=== PATIENT | male | born 1955 | race Caucasian/White ===

== ENCOUNTER 2018-05-13 17:08 | Inpatient (IN) | payer MEDICARE, SELFPAY ==
[2018-05-13 17:15] VITALS: BMI 27.5
--- NOTE | 2018-05-13 20:13 | PM.HP.1 ---
History of Present Illness Date Patient Seen: 05/13/18 Time Patient Seen: 20:10 Chief complaint: COPD Narrative: 63-year-old man with COPD under the primary care of the residents Clinic presented with cough, wheezing and shortness of breath over the past few days to the emergency department at [facility]. He was treated with Solu-Medrol 125 mg, Levaquin IV and frequently administered bronchodilators but remained hypoxic, requiring 4 L of nasal cannula oxygen. Due to lack of bed space, he is admitted to this hospital for further management and evaluation. He was also noted to have a BNP of 2100. Recent echocardiography showed ejection fraction 25%. The patient states a considerable amount of stress in his life recently, causing him to miss 2 weeks of his usual medications, returning from [place] a couple of days ago. Patient History Medical History Asthma (Acute) CHF (congestive heart failure) (Acute) COPD (chronic obstructive pulmonary disease) (Acute) History of methamphetamine abuse (Acute) Hyperlipidemia (Acute) Hypertension (Acute) Family & Social History Family History: Reviewed 05/13/18 by Jero Hdez MD Family history unavailable: No Social History: Single living in [facility]. Last methamphetamine use 10/2017 Tobacco & Substance use: former smoker Review of Systems Review of Systems All systems reviewed & are unremarkable except as noted in HPI and below Exam Narrative Exam Narrative: General: Alert, pleasant, in mild respiratory distress HEENT: Pupils equal round reactive, extraocular movements intact Neck: Supple Lungs: Diminished breath sounds throughout, prolonged expiratory phase, faint wheezing on forced expiration Cardiac: Regular rate and rhythm with no appreciable murmur Abdomen: Soft, nontender Extremities: Without edema Neurologic: Alert, oriented, no focal neurologic deficits Dermatologic: No rash or skin lesions Objective Imaging Chest x-ray: Radiologist's impression: No acute disease Assessment & Plan Plan: Assessment/Plan Narrative: 1. COPD/asthma exacerbation. Consult Respiratory therapy, treat with frequently administered bronchodilators, IV steroids and empiric antibiotics. 2. Acute hypoxic respiratory failure due to 1. Presenting oxygen saturation was 88% on room air. Continue supplemental oxygen. 3. Acute on chronic systolic congestive heart failure. Advance diuresis and follow clinically. 4. Hypertension. Continue routine medication. 5. Hyperlipidemia. Continue routine medication. 6. History of methamphetamine use, reportedly in remission. Check urine tox screen. 7. DVT prophylaxis: Low-dose Lovenox. 8. Code status: Full code. 9. Disposition: Admit to inpatient status as he will require at least 2 midnights of inpatient level care for
[2018-05-13 20:20] VITALS: BP 152/94; PULSE 71; RESP 24; TEMP 36.7; O2SAT 96
[2018-05-13 20:30] VITALS: O2SAT 96
--- NOTE | 2018-05-13 20:32 | PC.NURSE ---
Admit note: Patient arrived to acute care via gurney with transport team from [facility]. Patient awake and alert, speaking in full sentences, with mild tachypnea, and diaphoretic. O2 at 4L via NC, sat 96%. Loose watery stools upon arrival with cough. Productive cough noted. Diminished lung sounds noted to right upper and lower lobes. Patient pale. Abdominal distention, tender to palpation, soft, and active BS. Erythematous localized rash to groin/scrotal area with satelite lesions. Redness to perineal area, no broken skin, or abnormal drainage. RT at bedside performing ordered EKG. Dr. Hdez at bedside. Patient oriented to room and environment, Call light within reach.
[2018-05-13] MEDS: FUROSEMIDE 40 MG/4 ML VIAL IV (21:11)
[2018-05-13 21:12] VITALS: BP 152/94; PULSE 71
[2018-05-13] MEDS: CARVEDILOL 25 MG TABLET PO (21:12)
[2018-05-13] MEDS: ATORVASTATIN 20 MG TABLET 40 MG PO (21:12)
[2018-05-13] MEDS: ACETAMINOPHEN 325 MG TABLET 650 MG PO (21:15)
[2018-05-13 21:53] VITALS: O2SAT 96
[2018-05-13 22:45] LABS: Urine Amphetamines Positive (Negative); Urine Barbiturates Negative (Negative); Urine Benzodiazepines Negative (Negative); Urine Cocaine Negative (Negative); Urine MDMA Negative (Negative); Urine Methadone Negative (Negative); Urine Methamphetamines Positive (Negative); Urine Morphine/Opi cutoff 2000 Positive (Negative); Urine Oxycodone Negative (Negative); Urine Phencyclidine Negative (Negative); Urine Tetrahydrocannabinol Positive (Negative); Urine Tricyclic Antidepressant Negative (Negative)
[2018-05-13 23:00] VITALS: O2SAT 95
[2018-05-13 23:25] VITALS: BP 126/76; PULSE 62; RESP 16; TEMP 36; O2SAT 92
[2018-05-14] VITALS (18 sets, daily range): BP systolic 105–135; BP diastolic 69–88; PULSE 55–68; RESP 14–26; TEMP 35.6–36.3; O2SAT 86–96
[2018-05-14] MEDS: TRAMADOL 50 MG TABLET PO (00:12)
[2018-05-14] MEDS: methylPREDNISolone 125 MG/2 ML VIAL 80 MG IV ×4 (00:49→18:46)
[2018-05-14] MEDS: ALBUTEROL 2.5 MG/3 ML NEB (ADULT) INH ×2 (01:28→10:04)
--- NOTE | 2018-05-14 01:32 | PC.NURSE ---
NOC Shift Pt is A/o x3, reporting SOB with activity, increased productive cough. Green to yellow noted on tissue. Increased pain with cough. Tramadol given, Call into Dr Hdez for Goyo Escobar, per Pt request. Albuterol started by RT per home routine. Spo2 95% 4L. Dim t/o, wheezing noted on expiration. Pt afebrile, diaphoretic. Using call light for needs. [id number]-Rec'd order for goyo escobar.
[2018-05-14] MEDS: BENZONATATE 100 MG CAPSULE PO (01:49)
[2018-05-14] MEDS: ACETAMINOPHEN 325 MG TABLET 650 MG PO ×6 (02:08→21:23)
[2018-05-14 05:14] LABS: Add Manual Diff / Slide Review NO; Basophils Percent Auto 0.1 % (0-2); Hematocrit 46.1 % (41-53); Hemoglobin 15.6 g/dL (13.5-17.5); Lymphocytes Percent Auto 7.3 % (25-40); Mean Corpuscular HGB Conc 33.8 % (30-36); Mean Corpuscular Hemoglobin 30.2 PG (26-34); Mean Corpuscular Volume 89.3 fL (80-100); Monocytes Percent Auto 2.8 % (3-14); Neutrophils Absolute Auto 7900 /uL (3000-5900); Neutrophils Percent Auto 89.8 % (50-75); Platelet Count 155 X10^3/uL (150-400); Red Blood Cell Count 5.17 X10^6/uL (4.5-5.9); Red Cell Distribution Width 13.9 % (11.6-14.8); White Blood Cell Count 8.8 X10^3/uL (4.5-11.0)
[2018-05-14 05:21] LABS: BUN Creatinine Ratio 22.9 (6-22); Blood Urea Nitrogen 32 mg/dL (9-20); Calcium 9.1 mg/dL (8.4-10.2); Carbon Dioxide 29 mmol/L (22-32); Chloride 98 mmol/L (98-107); Estimated Glomerular Filt Rate 51.2 mL/min (>60); Glucose 194 mg/dL (80-110); HEMOLYSIS < 15 (0-50); Potassium 4.5 mmol/L (3.4-5.1); Sodium 137 mmol/L (137-145)
[2018-05-14 05:32] LABS: Troponin I 0.036 ng/mL (0.01-0.034)
[2018-05-14 05:42] LABS: B Type Natriuretic Peptide 86.1 (<100)
--- NOTE | 2018-05-14 09:01 | P.PN_ITS ---
Subjective Date Patient Seen: 05/14/18 Time Patient Seen: 08:45 Interval history: The patient states that breathing is improved, though is unstable. He had a large bowel movement this morning. He still feels very weak. He is very depressed about the of his dog another recent stressful events in his life. Exam Vital Signs (past 8 hours): - 05/14/18 01:00 05/14/18 01:15 05/14/18 05:00 Temperature Pulse Rate 68 Respiratory Rate 26 H Blood Pressure Pulse Oximetry 95 94 05/14/18 05:40 Temperature 96.1 F L Pulse Rate 60 Respiratory Rate 16 Blood Pressure 105/74 Pulse Oximetry 93 Oxygen Delivery Method Nasal Cannula Oxygen Flow Rate 4 Narrative Exam Narrative: General: Alert, pleasant, in mild respiratory distress HEENT: Pupils equal round reactive, extraocular movements intact Neck: Supple Lungs: Diminished breath sounds throughout, prolonged expiratory phase, faint wheezing on forced expiration Cardiac: Regular rate and rhythm with no appreciable murmur Abdomen: Soft, nontender Extremities: Without edema Neurologic: Alert, oriented, no focal neurologic deficits Dermatologic: No rash or skin lesions Objective Labs Result Diagrams: 05/14/18 04:45 05/14/18 04:45 Labs: Laboratory Results - last 24 hr 05/13/18 05/14/18 05/14/18 20:20 04:45 04:45 WBC 8.8 RBC 5.17 Hgb 15.6 Hct 46.1 MCV 89.3 MCH 30.2 MCHC 33.8 RDW 13.9 Plt Count 155 Neut % (Auto) 89.8 H Lymph % (Auto) 7.3 L [place] % (Auto) 2.8 L Eos % (Auto) 0.0 L Baso % (Auto) 0.1 Neut # (Auto) 7900 H Sodium 137 Potassium 4.5 Chloride 98 Carbon Dioxide 29 BUN 32 H Creatinine 1.40 H Estimated GFR 51.2 L BUN/Creatinine Ratio 22.9 H Glucose 194 H Calcium 9.1 Troponin I 0.036 H B-Natriuretic Peptide 86.1 Urine Opiates Screen Positive H Ur Oxycodone Screen Negative Urine Methadone Screen Negative Ur Barbiturates Screen Negative U Tricyclic Antidepress Negative Ur Phencyclidine Scrn Negative Ur Amphetamines Screen Positive H U Methamphetamines Scrn Positive H Ur MDMA Scrn (Ecstasy) Negative U Benzodiazepines Scrn Negative Urine Cocaine Screen Negative U Marijuana (THC) Screen Positive H Assessment & Plan Plan: Assessment/Plan Narrative: 1. COPD/asthma exacerbation. Slowly improving. Continue Respiratory therapy, treat with frequently administered bronchodilators, IV steroids and empiric antibiotics. 2. Acute hypoxic respiratory failure due to 1. Presenting oxygen saturation was 88% on room air. Continue supplemental oxygen. 3. Acute on chronic systolic congestive heart failure. Advance diuresis and follow clinically. 4. Hypertension. Continue routine medication. 5. Hyperlipidemia. Continue routine medication. 6. History of methamphetamine use, reportedly in remission. Check urine tox screen. 7. Grief reaction. He states significant anxiety and depression over recent stressful events. He is agreeable to starting anti depressant therapy. Initiate sertraline 50 mg daily and low-dose lorazepam 0.5 mg as needed. 8. DVT prophylaxis: Low-dose Lovenox. 8. Code status: Full code. 9. Disposition: Inpatient status as he will require at least 2 midnights of inpatient level care. Consult Physical therapy given significant weakness and unsteadiness. Quality VTE Deep Vein Thrombosis/Pulmonary Embolism Present on Admission: No
[2018-05-14] MEDS: FUROSEMIDE 40 MG/4 ML VIAL IV (09:33)
[2018-05-14] MEDS: SERTRALINE 50 MG TABLET PO (09:33)
[2018-05-14] MEDS: LORazepam 0.5 MG TABLET PO (09:33)
[2018-05-14] MEDS: SPIRONOLACTONE 25 MG TABLET 12.5 MG PO (09:36)
[2018-05-14] MEDS: CARVEDILOL 25 MG TABLET PO ×2 (09:36→21:23)
[2018-05-14] MEDS: AZITHROMYCIN 250 MG TABLET 500 MG PO (09:36)
[2018-05-14] MEDS: hydroCHLOROthiazide 25 MG TABLET PO (09:36)
[2018-05-14] MEDS: ENOXAPARIN 40 MG/0.4 ML SYRINGE SUBCUT (09:36)
[2018-05-14] MEDS: ASPIRIN EC 81 MG TABLET PO (09:36)
[2018-05-14] MEDS: LOSARTAN 50 MG TABLET 100 MG PO (09:36)
[2018-05-14] MEDS: AMLODIPINE 5 MG TABLET 10 MG PO (09:36)
--- NOTE | 2018-05-14 13:01 | PC.NURSE ---
Pt complained of chest pain briefly, Dr. Hdez aware and ordered an EKG. Pts chest pain gone by this time. wrote some orders for ativan and started pt on zoloft. He also has orders for morphine if he developes chest pain again. Pt up to commode with 1 person assist and walker. He has had 2 soft stools today. He voided 225cc this morning and also had urine mixed in his stool. He has been eating well at meals and drinking fluids. He is more comfortable now.
--- NOTE | 2018-05-14 14:21 | CM.DANOTE ---
Addendum entered by Ivelisse Samson LPN 05/14/18 14:48: Pt also notes he is a [place] . He says he has not gotten around to looking into his benefits. Original Note: Discharge Planning/Care Management DCP: assessment: case received EMR reviewed, discussed findings with CM team as a social work consult had been advised by RN during the initial nursing assessment but did not show as referral to CM dept. Met then with pt, introduced self and role and explained a manager social responsibility from CM/DCP dept would be assigned to follow him for social work/dcplanning. Pt is a 63 year old male who admitted last evening to care of the hospitalist team. States he does not live in [place] any longer but has [address] there...will alert ACG to same. Cell is same: [phone]. Pt is here for treatment of COPD: Payer: Medicare and Medicaid. PCP: confirms he goes to the Residency clinic [facility]. During brief meeting with pt he seemed very eager to talk, readily admitting to ongoing use of drugs and noted relapse started when he really just wanted to celebrate seeing my 40 year old son for the first time, then his dog and various events unfolded re his property and medical issues and thus felt justified in his ongoing use. Pt expressing anger re politicians, medical establishment and says that if he could just have his double hernia surgery every thing would be better. The doctor says he won't ok it because my heart can't handle the surgery. I know that's a lie. Dr. Hdez is starting pt on medications for depression and anxiety, would seem perhaps this might be a problem in setting of ongoing drug abuse but will defer to his expertise. Will pass on case to manager social responsibility team. CM manager social responsibility Liza was alerted to same. She recommends deferring to SALES APPOINTMENT COORDINATOR on tomorrow to see pt and proceed accordingly. [facility] has set assignment for same. CM Discharge Assessment Start: 05/14/18 14:04 Freq: Status: Active Protocol: Document 05/14/18 14:05 ITV (Rec: 05/14/18 14:19 ITV [id number]) Discharge Planning Assessment History Provided By Patient Medical Record Is this patient on Medicare? Yes Comment direct admit from [facility]/on divert for no capacity Prior Living Arrangements RV Household Members none Type of transporation used prior to Drives own vehicle admit Comment currently lives at [facility] in his motor home. Expresses anger re various failed land buying situations Independent with ADL's Yes Is patient alert and oriented? Yes Comment likely return to motor home at d/c. May need referrals for chemical dependency and mental health treatment options/ will defer to CM manager social responsibility for further assessement and recommendations. Dr. Hdez is starting pt on medications for Grief Reaction. Pt readily admits to his drug use/tox screen + for opioids and amphetamine/meth amphetatmins Review Status In Process Next Review Type Continued Stay Review Document 05/14/18 14:21 ITV (Rec: 05/14/18 14:21 ITV [id number]) Discharge Planning Assessment History Provided By Patient Medical Record Is this patient on Medicare? Yes Comment direct admit from [facility]/on divert for no capacity Prior Living Arrangements RV Household Members none Type of transporation used prior to Drives own vehicle admit Comment currently lives at [facility] in his motor home. Expresses anger re various failed land buying situations Independent with ADL's Yes Is patient alert and oriented? Yes Comment likely return to motor home at d/c. May need referrals for chemical dependency and mental health treatment options/ will defer to CM manager social responsibility for further assessement and recommendations. Dr. Hdez is starting pt on medications for Grief Reaction. Pt readily admits to his drug use/tox screen + for opioids and amphetamine/meth amphetatmins Review Status In Process Next Review Type Continued Stay Review
[2018-05-14 14:40] LABS: Troponin I 0.019 ng/mL (0.01-0.034)
--- NOTE | 2018-05-14 14:42 | PT.IIE ---
Current Diagnoses Chronic obstructive pulmonary disease with (acute) exacerbation (05/13/18) Medical History (Last Updated 05/13/18 @ 20:21 by Jero Hdez MD) Asthma (Acute) CHF (congestive heart failure) (Acute) COPD (chronic obstructive pulmonary disease) (Acute) History of methamphetamine abuse (Acute) Hyperlipidemia (Acute) Hypertension (Acute) Physical Therapy Inpatient Evaluation/Re-Eval M1 PT/OT-IP Prior Functional Status Start: 05/14/18 15:44 Freq: NEEDED Status: Active Protocol: Document 05/14/18 14:42 MDD (Rec: 05/14/18 16:03 MDD [id number]) Medical Review Prior Functional Status Medical History Reviewed Yes Mobility and Gait independent with no AD Activities of Daily Living and IADL's independent with ADL's Social History Household Members none Living Arrangements RV Number of Floors (Floors) One Floor Number of Stairs To Enter/Railing? 2 steps into RV, one railing on L after first step. Home Environment Standard Height Toilet Employment Status Unemployed Additional Social History Comment Pt lives alone in RV. Multiple stressors last year with complicated family relationships. 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 No close family nearby. Water does not work for shower in RV - pt reports he currently someone working with him to find low income housing. M2 PT-IP Current Condition Start: 05/14/18 15:44 Freq: NEEDED Status: Active Protocol: Document 05/14/18 14:42 MDD (Rec: 05/14/18 16:03 MDD [id number]) Physical Therapy Current Condition Current Condition Evaluation Date 05/14/18 Treatment Diagnosis COPD, pneumonia Onset Date 05/13/18 M3 PT-IP Subjective Start: 05/14/18 15:44 Freq: NEEDED Status: Active Protocol: Document 05/14/18 14:42 MDD (Rec: 05/14/18 16:03 MDD [id number]) Subjective Physical Therapy Visit Type Type Initial Evaluation Visit Start Time 14:15 Visit Stop Time 14:42 Total Visit Minutes 37 Number of COMPUTER LAB PARA PROFESSIONAL Visits 0 Physical Therapy Visit Comments Patient Comments Pt reports feeling very weak, nauseous, fatigued and hot. Agreeable to participate with PT eval. Pt reports discomfort from scrotal edema/ herniation in sitting, prefers to stand to reposition after supine to sit. Therapy Pain Assessment Pain Present Pain Present Denied Pain M4 PT-IP Mobility and Gait Start: 05/14/18 15:44 Freq: NEEDED Status: Active Protocol: Document 05/14/18 14:42 MDD (Rec: 05/14/18 16:03 MDD [id number]) PT-Bed Mobility Assessment Supine to Sit Supine to Sit Minimal Assistance Head of Bed Elevated Sit to Supine Sit to Supine Independent Head of Bed Elevated Scooting Scooting to Edge of Bed Independent PT-Transfer Assessment Sit to and From Stand Sit to and from Stand Standby Assistance Equipment Transfer Assistive Device Gait Belt Front Wheeled Walker Orthotic/Prosthetic Devices or Brace: No Transfers Transfer Destination Bed Transfer Ability Level of Assist Standby Assistance Comments Mobility Comments Pt on 5 L oxygen at rest with O2 sats 83-84%. Gait Assessment Comments Gait Comments Did not perform gait this day due to limitations with supplemental oxygen tubing. PT-Balance Assessment Sitting Balance and Reactions Static Sitting Balance Ability Normal Dynamic Sitting Balance Ability Normal Standing Balance and Reactions Static Standing Balance Ability Normal Dynamic Standing Balance Ability Good Balance Tests Romberg 30 seconds Functional Assessments Other Functional Tests Performed Pt demonstrated ability to stand with UE support x 7 minutes on 5 L O2. O2 saturation did not drop below 91%. M5 PT-IP Objective Assessments Start: 05/14/18 15:44 Freq: NEEDED Status: Active Protocol: Document 05/14/18 14:42 MDD (Rec: 05/14/18 16:03 MDD [id number]) Orientation Orientation/Cognition Level of Alertness Alert Orientation Name Age Birthday Month Date Year Day of Week Place Situation Language Function Ability No Deficits Noted Safety Awareness Understands Safety Issues Memory Description No Deficits Noted Gross Range of Motion Lower Extremity ROM Assessment Within Functional Limits Strength Lower Extremity Strength Assessment Within Functional Limits M6 PT-IP Treatment Start: 05/14/18 15:44 Freq: NEEDED Status: Active Protocol: Document 05/14/18 14:42 MDD (Rec: 05/14/18 16:03 MDD [id number]) Physical Therapy Treatment Education Education Provided Safety M7 PT-IP Assessment and Plan Start: 05/14/18 15:44 Freq: NEEDED Status: Active Protocol: Document 05/14/18 14:42 MDD (Rec: 05/14/18 16:03 MDD [id number]) PT Summary Assessment and Plan Potential Rehabilitation Potential Good Status of Condition at Evaluation Stable Summary Impairments Bed Mobility Transfers Gait Activity Tolerance Progress Towards Goals Slow Progress due to Medical Issues Assessment Summary Pt very fatigued, but demonstrated min A for supine to sit with HOB elevated. Did not perform gait today due to restraints with oxygen tubing . Pt expected to continue to improve with mobility as medical condition improves. Will benefit from inpatient PT to improve activity tolerance and gait for return to PLOF prior to d/c. Goals Bed Mobility Goal Independent Transfer Goal Independent Gait Goal Independent Gait Distance 50 feet on level ground with no AD Other Goals Able to ascend/descend 2 steps with one handrail on left to enter RV Days to Meet Goals 3 Frequency of Treatment Frequency Of Treatment Twice a Day Treatment Plan Physical Therapy Treatment Plan Bed Mobility Training Transfer Training Gait Training Therapeutic Exercise Discharge Planning Recommendations To Nursing Amount of Assist Needed 1 Person Assist Discharge Recommendations PT Discharge Recommendations Home Other Discharge Recommendations Home situation does not seem ideal due to lack of working water. However, pt should be able to improve to PLOF as medical condition improves.
[2018-05-14] MEDS: ALBUTEROL/IPRATROPIUM 3 ML AMPUL INH ×2 (15:55→20:03)
[2018-05-14] MEDS: ATORVASTATIN 20 MG TABLET 40 MG PO (21:23)
[2018-05-15] VITALS (12 sets, daily range): BP systolic 91–128; BP diastolic 55–78; PULSE 52–62; RESP 14–18; TEMP 36–36.3; O2SAT 90–95
[2018-05-15] MEDS: TRAMADOL 50 MG TABLET PO (00:38)
[2018-05-15] MEDS: methylPREDNISolone 125 MG/2 ML VIAL 80 MG IV ×2 (00:40→09:40)
[2018-05-15] MEDS: ALBUTEROL/IPRATROPIUM 3 ML AMPUL INH ×3 (01:05→10:59)
[2018-05-15 05:39] LABS: BUN Creatinine Ratio 42.9 (6-22); Blood Urea Nitrogen 60 mg/dL (9-20); Carbon Dioxide 28 mmol/L (22-32); Chloride 95 mmol/L (98-107); Estimated Glomerular Filt Rate 51.2 mL/min (>60); Glucose 176 mg/dL (80-110); HEMOLYSIS < 15 (0-50); Sodium 134 mmol/L (137-145)
--- NOTE | 2018-05-15 06:09 | PC.NURSE ---
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 Spoke of family/children issues/stress, support provided. Pt c/o double hernia pain 02/09, requesting Tramadol prn. Tramadol given at 0040, with good effect. Remained on continuous O2 monitoring, O2 sat 91-95% on 5L NC. During initial assessment at 0050, pt able to hold a conversation without visible becoming short of breath, states feels SOBOE and weak with OOB movement. High fall risk precautions in place.
--- NOTE | 2018-05-15 08:49 | P.DS_ITS ---
History of Present Illness Date Patient Seen: 05/15/18 Time Patient Seen: 08:10 Chief complaint: COPD Narrative: 63-year-old man with COPD under the primary care of the residents Clinic presented with cough, wheezing and shortness of breath over the past few days to the emergency department at [facility]. He was treated with Solu-Medrol 125 mg, Levaquin IV and frequently administered bronchodilators but remained hypoxic, requiring 4 L of nasal cannula oxygen. Due to lack of bed space, he is admitted to this hospital for further management and evaluation. He was also noted to have a BNP of 2100. Recent echocardiography showed ejection fraction 25%. The patient states a considerable amount of stress in his life recently, causing him to miss 2 weeks of his usual medications, returning from [place] a couple of days ago. Discharge Providers Date of admission: 05/13/18 17:08 Primary care physician: Shady Olea Consults: 05/13/18 20:55 Consult to Pastoral Services Routine Comment: recent life stressors 05/14/18 09:03 Consult to Physical Therapy Evaluate & Treat Comment: weakness Physician Instructions: Evaluate and Treat Discharge provider: Jero Hdez MD Summary Discharge Diagnosis: 1. COPD/asthma exacerbation 2. Acute hypoxic respiratory failure due to 1. 3. Acute on chronic systolic congestive heart failure 4. Above complications due to medication noncompliance 6. Depression/anxiety 7. Hypertension 8. Hyperlipidemia 9. Active methamphetamine use Hospital Course: The patient was admitted and treated with IV steroids, antibiotics and diuresis, with his usual medications resumed due to medication noncompliance over the past 2 weeks. He was significantly depressed and stressed over recent family events, including loss of it dog, and was started on sertraline. He was feeling significantly better and interested in discharge home. No other issues arose. Status at Discharge Functional status at discharge: independent ambulation Overall status at discharge: patient is progressing back to baseline Time Spent with Patient Greater than 30 minutes Exam Vital Signs (past 8 hours): - 05/15/18 00:50 05/15/18 01:05 05/15/18 03:00 Temperature 96.8 F L Pulse Rate 52 L 58 L Respiratory Rate 14 18 Blood Pressure 91/55 L Pulse Oximetry 91 92 93 05/15/18 03:08 05/15/18 04:29 05/15/18 07:15 Temperature Pulse Rate 53 L 62 Respiratory Rate 16 Blood Pressure Pulse Oximetry 92 95 94 Fraction of Inspired Oxygen 40 Oxygen Delivery Method Nasal Cannula Oxygen Flow Rate 5 Narrative Exam Narrative: General: Alert, pleasant, in mild respiratory distress HEENT: Pupils equal round reactive, extraocular movements intact Neck: Supple Lungs: Diminished breath sounds throughout, faint wheezing on forced expiration Cardiac: Regular rate and rhythm with no appreciable murmur Abdomen: Soft, nontender Extremities: Without edema Neurologic: Alert, oriented, no focal neurologic deficits Dermatologic: No rash or skin lesions Objective Labs Result Diagrams: 05/14/18 04:45 05/15/18 04:52 Labs: Laboratory Results - last 24 hr 05/14/18 05/15/18 14:10 04:52 Sodium 134 L Potassium 4.0 Chloride 95 L Carbon Dioxide 28 BUN 60 H Creatinine 1.40 H Estimated GFR 51.2 L BUN/Creatinine Ratio 42.9 H Glucose 176 H Calcium 9.0 Troponin I 0.019 Discharge Plan Discharge Plan Patient Disposition: Home, Self-Care Discharge comment: please send all Rx's to [facility] (computer won' t send, will need to print Rx for tramadol for signature) Discharge Med Rec/Prescriptions Prescriptions: New azithromycin [Zithromax Z-Eric] 250 mg Tablet 500 mg PO DAILY Qty: 3 RF: 0 benzonatate 100 mg Capsule 100 mg PO TID PRN (Reason: Cough) Qty: 14 RF: 0 sertraline [Zoloft] 50 mg Tablet 50 mg PO DAILY Qty: 30 RF: 0 prednisone 10 mg tablet 10 mg PO DAILY Qty: 20 RF: 0 Continue albuterol sulfate 1.25 mg/3 mL Solution For Nebulization 1.25 mg INHALATION QID PRN (Reason: Respiratory Distress) RF: 0 atorvastatin 40 mg Tablet 40 mg PO DAILY Qty: 30 RF: 0 carvedilol 25 mg Tablet 25 mg PO BID Qty: 60 RF: 0 aspirin 81 mg Tablet,Delayed Release (Dr/Ec) 81 mg PO DAILY Qty: 30 RF: 0 spironolactone 25 mg Tablet 25 mg PO DAILY Qty: 30 RF: 0 amlodipine 10 mg Tablet 10 mg PO DAILY Qty: 30 RF: 0 hydrochlorothiazide 25 mg Tablet 25 mg PO DAILY Qty: 30 RF: 0 albuterol sulfate [Proventil HFA] 90 mcg/actuation Hfa Aerosol Inhaler 2 puff INHALATION QID PRN (Reason: Respiratory Distress) Qty: 1 RF: 0 losartan 100 mg Tablet 100 mg PO DAILY Qty: 30 RF: 0 ipratropium bromide [Atrovent HFA] 17 mcg/actuation Hfa Aerosol Inhaler 1 puff INHALATION QID Qty: 12.9 RF: 0 Changed tramadol 50 mg 1 tab PO BID PRN (Reason: Pain, Moderate) Qty: 14 RF: 0 Follow up/Referrals: Shady Olea [Primary Care Provider] - 1 Week Provider Discharge Instructions Diet: Regular and Low-sodium Visit Report/Discharge Packet Instructions: DI for Chronic Obstructive Pulmonary Disease Print Language: Slovak Discharge Data Primary Care Provider: Shady Olea Attending Provider: Jero Hdez V Admit Date/Time: 05/13/18 17:08 Quality VTE Deep Vein Thrombosis/Pulmonary Embolism Present on Admission: No
[2018-05-15] MEDS: SERTRALINE 50 MG TABLET PO (09:41)
[2018-05-15] MEDS: AMLODIPINE 5 MG TABLET 10 MG PO (09:41)
[2018-05-15] MEDS: SPIRONOLACTONE 25 MG TABLET 12.5 MG PO (09:41)
[2018-05-15] MEDS: CARVEDILOL 25 MG TABLET PO (09:41)
[2018-05-15] MEDS: hydroCHLOROthiazide 25 MG TABLET PO (09:41)
[2018-05-15] MEDS: LOSARTAN 50 MG TABLET 100 MG PO (09:41)
[2018-05-15] MEDS: ENOXAPARIN 40 MG/0.4 ML SYRINGE SUBCUT (09:41)
[2018-05-15] MEDS: BENZONATATE 100 MG CAPSULE PO (09:42)
[2018-05-15] MEDS: ASPIRIN EC 81 MG TABLET PO (09:42)
[2018-05-15] MEDS: AZITHROMYCIN 250 MG TABLET 500 MG PO (09:42)
[2018-05-15] MEDS: ACETAMINOPHEN 325 MG TABLET 650 MG PO (09:43)
--- NOTE | 2018-05-15 12:20 | PT.IPTN ---
Current Diagnoses Chronic obstructive pulmonary disease with (acute) exacerbation (05/13/18) Physical Therapy Treatment Note M2 PT-IP Current Condition Start: 05/14/18 15:44 Freq: NEEDED Status: Active Protocol: Document 05/15/18 12:20 RCC (Rec: 05/15/18 12:55 [facility] [email or web address]) Physical Therapy Current Condition Current Condition Evaluation Date 05/14/18 Treatment Diagnosis COPD, pneumonia Onset Date 05/13/18 M3 PT-IP Subjective Start: 05/14/18 15:44 Freq: NEEDED Status: Active Protocol: Document 05/15/18 12:20 RCC (Rec: 05/15/18 12:55 [facility] [email or web address]) Subjective Physical Therapy Visit Type Type Treatment Note Visit Start Time 12:05 Visit Stop Time 12:20 Total Visit Minutes 15 Number of TECHNICAL DESIGNER Visits 0 Physical Therapy Visit Comments Patient Comments Pt notes that he is doing much better since coming to the ER . He notes that I know that I can do my stairs now that I have seen how I can walk. M4 PT-IP Mobility and Gait Start: 05/14/18 15:44 Freq: NEEDED Status: Active Protocol: Document 05/15/18 12:20 RCC (Rec: 05/15/18 12:55 [facility] [email or web address]) PT-Bed Mobility Assessment Supine to Sit Supine to Sit Independent Sit to Supine Sit to Supine Independent Scooting Scooting to Edge of Bed Independent PT-Transfer Assessment Sit to and From Stand Sit to and from Stand Independent Equipment Transfer Assistive Device Gait Belt Transfers Transfer Destination Bed Transfer Technique Stand Step Pivot Transfer Ability Level of Assist Independent Comments Mobility Comments bed to ambulation in cesar back to bed. Gait Assessment Gait Gait Assistance Required: Standby Assistance Distance (Feet) (feet) 150 Assistive Devices Assistive Device Gait Belt Gait Deviations General Gait Pattern Decreased Feet Clearance Wide Based Gait Factors Limiting Gait Function Factors Limiting Gait Function Decreased Activity Tolerance Decreased Strength Comments Gait Comments O2 saturation 89-90% pre and post-session on 4-L O2. Stair Climbing Assessment Comments Stair Climbing Comments He notes that I know that I can do my stairs now that I have seen how I can walk. Respectfully declined stair training. PT-Balance Assessment Sitting Balance and Reactions Static Sitting Balance Ability Normal Dynamic Sitting Balance Ability Normal Standing Balance and Reactions Static Standing Balance Ability Fair Dynamic Standing Balance Ability Fair M5 PT-IP Objective Assessments Start: 05/14/18 15:44 Freq: NEEDED Status: Active Protocol: Document 05/14/18 14:42 MDD (Rec: 05/14/18 16:03 MDD [id number]) Orientation Orientation/Cognition Level of Alertness Alert Orientation Name Age Birthday Month Date Year Day of Week Place Situation Language Function Ability No Deficits Noted Safety Awareness Understands Safety Issues Memory Description No Deficits Noted Gross Range of Motion Lower Extremity ROM Assessment Within Functional Limits Strength Lower Extremity Strength Assessment Within Functional Limits M6 PT-IP Treatment Start: 05/14/18 15:44 Freq: NEEDED Status: Active Protocol: Document 05/15/18 12:20 RCC (Rec: 05/15/18 12:55 [facility] [email or web address]) Physical Therapy Treatment Education Education Provided Safety M7 PT-IP Assessment and Plan Start: 05/14/18 15:44 Freq: NEEDED Status: Active Protocol: Document 05/15/18 12:20 RCC (Rec: 05/15/18 12:55 RCC [email or web address]) PT Summary Assessment and Plan Summary Impairments Strength Balance Gait Activity Tolerance Assessment Summary Pt able to ambulate in hallway 150 ft without assistive device and SBA. Pt without loss of balance during gait and fair gait speed, but does demonstrate wide based gait and decreased foot clearance. Pt reporting he feels ready for d/c, respectfully declined stair training. Pt appears appropriate to d/c home when medically stable. Goals Bed Mobility Goal Independent Transfer Goal Independent Gait Goal Independent Gait Distance 50 feet on level ground with no AD Other Goals Able to ascend/descend 2 steps with one handrail on left to enter RV Days to Meet Goals 3 Frequency of Treatment Frequency Of Treatment Twice a Day Treatment Plan Other Recommendations and Next Treatment gait training. Focus Recommendations To Nursing Amount of Assist Needed 1 Person Assist Discharge Recommendations PT Discharge Recommendations Home Other Discharge Recommendations Home situation does not seem ideal due to lack of working water. However, pt should be able to improve to PLOF as medical condition improves.
--- NOTE | 2018-05-15 13:14 | CM.SWNOTE ---
NURSE PRACTITIONER PER DIEM Note: Received request from JASMIN/Ivelisse Kilgore for NURSE PRACTITIONER PER DIEM evaluation for mental health/substance abuse history. Patient is a 63yr old male admitted to [facility] with COPD on 05-13-18. NURSE PRACTITIONER PER DIEM met with patient this AM and explained NURSE PRACTITIONER PER DIEM role. Patient currently with order to d/c home today. Patient alert and oriented during interview. Patient reports that he currently feels lost. Patient emotional during interview and reports many current life stressors. Patient resides in his mobile home that is currently parked in [facility]. Patient resides alone and has h/o substance and alcohol abuse. Patient reports that he began drinking alcohol at 19yrs of age. He quit drinking in 1990. Patient indicates that he quit drinking for his 3 kids. Currently, patient reports that he actively uses methamphetamine for pain management. Patient indicates that he is in need of surgery for hernia repairs but that he has been unable to find a surgeon to do it? Secondly, he reports that he is [facility] on [facility]. NURSE PRACTITIONER PER DIEM discussed d/c planning and options for assistance once patient discharged. Patient denies any need for detox/substance abuse services but does report he needs assistance with mental health. Patient is a [facility] and reports that he has never been diagnosed with PTSD or any other mental illness. Patient admits to having bad dreams about [place] but has never had them addressed. Patient [facility] has [facility]. NURSE PRACTITIONER PER DIEM provided patient with [facility] if needed for mental health assistance or crisis. Patient reports that his entire family is a mess right now and begins to speak about his family and then diverts back to his need for surgery. Patient asked if he has transportation to return to his mobile home today? Patient indicates that he does have friend (Jamey) who can most likely pick him up. Patient reports that Jamey lost her spouse whom was also a [facility] V[facility] and she now helps individuals like him navigate through the system. Patient denies additional social work associate needs and appreciative of visit. Patient denies homicidal or suicidal ideations. No additional services requested at this time. P: Home today. Community resources provided for mental health and [facility] per patient's request. Friend to provide transport. RN updated. RACHNA Hyman
== END 2018-05-15 13:20 | disposition home or self-care (01) | DRG 189 ==
PROVIDERS: Admitting Provider Internal Medicine; PCP Family Medicine; Visit Provider Internal Medicine
DX: J96.01 Acute respiratory failure with hypoxia (principal); I50.23 Acute on chronic systolic (congestive) heart failure; J44.1 Chronic obstructive pulmonary disease with (acute) exacerbation; J45.901 Unspecified asthma with (acute) exacerbation; Z87.891 Personal history of nicotine dependence; I11.0 Hypertensive heart disease with heart failure; E78.5 Hyperlipidemia, unspecified; Z91.128 Patient's intentional underdosing of medication regimen for other reason; F43.20 Adjustment disorder, unspecified; F15.90 Other stimulant use, unspecified, uncomplicated
CPT/HCPCS: 36415; 80048; 80305; 83880; 84484; 85025; 93005; 94150; 94640; 94760; 97116; 97161; 97530; J1650; J1940; J2930; J7613